=== PATIENT | male | born 1990 | race Caucasian/White ===

== ENCOUNTER 2022-03-14 13:13 | Inpatient (IN) | payer OTHER ==
[~2022-03-14] VITALS: Ht 167.6 cm; Wt 84.8 kg
[~2022-03-14 13:13] MED LIST: PROCHLORPERAZIN10 MG PO
[2022-03-14 14:46] LABS: HEMOGLOBIN 15.7 gm/dl (14.0-17.5); RED BLOOD COUNT 5.35 M/UL (4.20-5.50); WHITE BLOOD COUNT 15.3 K/UL (4.5-11.0)
[2022-03-14 15:07] LABS: BUN/CREATININE RATIO 20 (0-10)
[2022-03-14] MEDS ORDERED: ONDANSETRON ODT4 MG PO (18:05)
[2022-03-14] MEDS ORDERED: PROTONIX40 MG PO (18:06)
[2022-03-14] MEDS ORDERED: LANTUS SOL100 UNIT/1 SQ (18:06)
[2022-03-15 06:09] LABS: HEMOGLOBIN 15.6 gm/dl (14.0-17.5); RED BLOOD COUNT 5.31 M/UL (4.20-5.50)
[2022-03-15 06:13] LABS: WHITE BLOOD COUNT 10.7 K/UL (4.5-11.0)
[2022-03-15 06:30] LABS: BUN/CREATININE RATIO 18 (0-10)
[2022-03-16 05:59] LABS: WHITE BLOOD COUNT 8.9 K/UL (4.5-11.0)
[2022-03-16 06:08] LABS: HEMOGLOBIN 13.1 gm/dl (14.0-17.5); RED BLOOD COUNT 4.54 M/UL (4.20-5.50)
[2022-03-16 06:16] LABS: BUN/CREATININE RATIO 14 (0-10)
[2022-03-17 07:26] LABS: BUN/CREATININE RATIO 11 (0-10)
[2022-03-17] MEDS ORDERED: REGLAN5 MG PO ×2 (15:29→15:30)
[2022-03-17] MEDS ORDERED: ERYTHROMYCIN250 M1 PO ×2 (15:29→15:30)
== END 2022-03-17 17:09 | disposition home or self-care (01) | DRG 74 ==
LOC: ER1 13:13 → EDBD 13:13 → CDU 16:46 → MED SURG 4 16:46
PROVIDERS: Emergency Medicine; Internal Medicine; ADMIT Internal Medicine
DX: E10.43 Type 1 diabetes mellitus with diabetic autonomic (poly)neuropathy (principal); E87.1 Hypo-osmolality and hyponatremia; Z20.822 Contact with and (suspected) exposure to COVID-19; E87.6 Hypokalemia; E66.9 Obesity, unspecified; F17.210 Nicotine dependence, cigarettes, uncomplicated; F12.10 Cannabis abuse, uncomplicated; E86.0 Dehydration; Z83.3 Family history of diabetes mellitus; Z82.49 Family history of ischemic heart disease and other diseases of the circulatory system; Z68.30 Body mass index [BMI] 30.0-30.9, adult
CPT/HCPCS: 36415; 78264; 80048; 80053; 81001; 82436; 82533; 82550; 82553; 82962; 83036; 83690; 83735; 83935; 84100; 84132; 84133; 84300; 84439; 84443; 84484; 84550; 85025; 87086; 96365; 96375; 99285; A9541; C9113; J1364; J1650; J2270; J2405; J2550; J2765; J7030; Q9967